=== PATIENT | male | born 1970 | race Caucasian/White ===

== ENCOUNTER → 2023-12-16 | Outpatient (CLI) | payer OTHER ==
--- NOTE | 2023-12-16 15:36 | PE ---
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 Images are reviewed on the computer in the coronal, axial, and sagittal planes. Reconstructed rotating images are created on independent workstation and reviewed on the computer. A non-contrast CT is performed in conjunction with the PET scan. Glucose level 205 mg/dL CT DLP: 515.94/212.67 mGycm, Automated exposure control for dose reduction was used. COMPARISON: CT None, PET/CT 10/06/2023, MRI: 08/26/2023 FINDINGS: Mediastinal SUV mean is 1.9. Hepatic parenchyma SUV mean is 2.5. SKULL BASE AND NECK: Decreased size of soft tissue mass within the bilateral nasopharynx and oropharynx. There is decrease d FDG activity with a maximum SUV of 4.2. Previously 13.3. Decreased size of bilateral retropharyngeal cervical lymph nodes. Example included a right level 2 lymph node which demonstrate a maximum SUV of 2.4, previously 7.5 an d a left level 2/3 lymph node with a maximum SUV of 2.7, previously 7.5. These are difficult to measu re due to lack of intravenous contrast. Appeared to measure less than 1 cm short axis. CHEST, MEDIASTINUM, AND HILAR REGION: No suspicious radiotracer activity. ABDOMEN AND PELVIS: No suspicious radiotracer activity. MUSCULOSKELETAL STRUCTURES: Sclerotic 1.6 cm lesion within the left aspect of the T4 vertebral body demonstrates a maximum SUV of 2.3, previously 10.7. Previously seen focal radiotracer activity within the region of the left scapula and left femoral sha ft are no longer visualized. OTHER CT: Anterior right chest wall Mediport catheter with distal tip terminating at the superior cav oatrial junction. Mild bilateral gynecomastia. Mild enlarged heart. Small coronary artery calcificati ons. Small hiatal hernia. Prostate calcifications. Mild mucosal thickening in the inferior left maxil la sinus. IMPRESSION: Positive response to therapy with decreased size and FDG activity below background within bilateral n asopharyngeal and oropharyngeal mass related to patient's known malignancy. Decreased size and FDG ac tivity below background within bilateral retropharyngeal and cervical lymph nodes. Decreased FDG acti vity below background within left L4 osseous metastasis with no definitive visualized FDG activity wi thin previously seen midshaft left femur lesion. [facility], , 12/16/2023 3:34 PM
== END | disposition home or self-care (01) ==
LOC: RADPETMAIN 10:48
PROVIDERS: ATTEND Internal Medicine
CPT/HCPCS: 78815

== ENCOUNTER 2024-01-15 14:41 | Emergency (ER) | payer BC, OTHER ==
--- NOTE | 2024-01-15 14:50 | ED ---
Wound/Laceration HPI - General Chief Complaint: Wound/Laceration Stated Complaint: thumb lac Time Seen by Provider: 01/15/24 14:50 Source: patient, RN notes reviewed Mode of arrival: ambulatory Limitations: no limitations - History of Present Illness Initial Comments: 53-year-old male presents emergency department chief complaint of a left thumb laceration that occurred approximately an hour before arrival. States that he was in his garage butchering a deer when he accidentally cut his thumb with a knife. He is unaware when his last tetanus vaccination was. Denies loss of range of motion of the thumb. Denies paresthesias. Denies blood thinner use. No other acute complaints at this time. - Related Data Allergies Allergy/AdvReac Type Severity Reaction Status Date / Time iodine Allergy Anaphylaxis Verified 01/15/24 14:43 Penicillins Allergy Anaphylaxis Verified 01/15/24 14:43 Review of Systems ROS Statement: Those systems with pertinent positive or pertinent negative responses have been documented in the HPI. ROS Other: All systems not noted in ROS Statement are negative. Past Medical History Past Medical History: Cancer, Diabetes Mellitus, Sleep Apnea/CPAP/BIPAP Additional Past Medical History / Comment(s): IBS History of Any Multi-Drug Resistant Organisms: None Reported Past Surgical History: Orthopedic Surgery Additional Past Surgical History / Comment(s): left shoudler, left, elbow, bilteral knees Past Psychological History: No Psychological Hx Reported Smoking Status: Former smoker Past Alcohol Use History: None Reported Past Drug Use History: None Reported General Exam Limitations: no limitations General appearance: alert, in no apparent distress Eye exam: Present: normal appearance, PERRL, EOMI. Absent: scleral icterus, conjunctival injection, periorbital swelling ENT exam: Present: normal exam, mucous membranes moist Neck exam: Present: normal inspection. Absent: tenderness, meningismus, lymphadenopathy Respiratory exam: Present: normal lung sounds bilaterally. Absent: respiratory distress, wheezes, rales, rhonchi, stridor Cardiovascular Exam: Present: regular rate, normal rhythm, normal heart sounds. Absent: systolic murmur, diastolic murmur, rubs, gallop, clicks GI/Abdominal exam: Present: soft, normal bowel sounds. Absent: distended, tenderness, guarding, rebound, rigid Left Hand Wrist exam: Present: full ROM, tenderness (DIP), laceration (DIP of thumb 4 cm laceration, active bleeding, full ROM). Absent: swelling, erythema Neuro motor exam: Present: wrist extension intact, thumb opposition intact, thumb IP flexion intact, thumb adduction intact Vascular: Present: normal capillary refill, radial pulse (2+). Absent: vascular compromise Skin exam: Present: warm, dry, intact, normal color. Absent: rash Course Vital Signs 01/15/24 01/15/24 14:44 16:14 Temperature 98.8 F 98.6 F Pulse Rate 97 89 Respiratory 16 18 Rate Blood Pressure 139/92 131/90 O2 Sat by Pulse 98 98 Oximetry Procedures - Laceration Laceration #1 Consent Obtained: verbal consent Indication: laceration Site: hand Size (cm): 4 Description: linear Depth: simple, single layer Anesthetic Used: lidocaine 1% Anesthesia Technique: nerve block Pre-repair: wound explored, irrigated extensively Type of Sutures: nylon Size of Sutures: 4-0 Number of Sutures: 4 Technique: simple, interrupted Patient Tolerated Procedure: well, no complications Medical Decision Making - Medical Decision Making Was pt. sent in by a medical professional or institution (Dr. PA, SET DECORATOR, urgent care, hospital, or skilled nursing...) When possible be specific @ -No Did you speak to anyone other than the patient for history (EMS, parent, family, police, friend...)? What history was obtained from this source @ -No Did you review nursing and triage notes (agree or disagree)? Why? @ -I reviewed and agree with nursing and triage notes Were old charts reviewed (outside hosp., previous admission, EMS record, old EKG, old radiological studies, urgent care reports/EKG's, skilled nursing records)? Report findings @ -No old charts were reviewed Differential Diagnosis (chest pain, altered mental status, abdominal pain women, abdominal pain men, vaginal bleeding, weakness, fever, dyspnea, syncope, headache, dizziness, GI bleed, back pain, seizure, CVA, palpatations, mental health, musculoskeletal)? @ -Laceration, skin avulsion EKG interpreted by me (3pts min.). @ -None X-rays interpreted by me (1pt min.). @ -None done CT interpreted by me (1pt min.). @ -None done U/S interpreted by me (1pt. min.). @ -None done What testing was considered but not performed or refused? (CT, X-rays, U/S, labs)? Why? @ -None What meds were considered but not given or refused? Why? @ -None Did you discuss the management of the patient with other professionals (professionals i.e. , PA, SET DECORATOR, lab, RT, psych nurse, social worker delinquency prevention, news operations manager, teacher, neighborhood conservation officer, director case)? Give summary @ -No Was smoking cessation discussed for >3mins.? @ -No Was critical care preformed (if so, how long)? @ -No Were there social determinants of health that impacted care today? How? (Homelessness, low income, unemployed, alcoholism, drug addiction, transportation, low edu. Level, literacy, decrease access to med. care, fpc, rehab)? @ -No Was there de-escalation of care discussed even if they declined (Discuss DNR or withdrawal of care, Hospice)? DNR status @ -No What co-morbidities impacted this encounter? (DM, HTN, Smoking, COPD, CAD, Cancer, CVA, ARF, Chemo, Hep., AIDS, mental health diagnosis, sleep apnea, morbid obesity)? @ -None Was patient admitted / discharged? Hospital course, mention meds given and route, prescriptions, significant lab abnormalities, going to OR and other pertinent info. @ -Discharged. 53-year-old male with a laceration to his left thumb. On examination patient had full range of motion left thumb and is neurovascularly intact. Pulses strong 2+. Patient noted to have a roughly 4 cm laceration over the distal interphalangeal joint of the left thumb. Patient is provided with tetanus vaccination. Digital block was placed to the left thumb and 4 simple interrupted sutures were placed with 4-0 nylon. Additionally, area was thoroughly cleansed with sterile water. Recommend the patient report back to the emergency department or to his primary care provider in 7 to 10 days for suture removal. Discussed with Dr. Overton Undiagnosed new problem with uncertain prognosis? @ -No Drug Therapy requiring intensive monitoring for toxicity (Heparin, Nitro, Insulin, Cardizem)? @ -No Were any procedures done? @ -Wound irrigation, suture repair Diagnosis/symptom? @ -laceration Acute, or Chronic, or Acute on Chronic? @ -Acute Uncomplicated (without systemic symptoms) or Complicated (systemic symptoms)? @ -uncomplicated Side effects of treatment? @ -No Exacerbation, Progression, or Severe Exacerbation? @ -No Poses a threat to life or bodily function? How? (Chest pain, [place], [place], pneumonia, PE, COPD, DKA, ARF, appy, cholecystitis, CVA, Diverticulitis, Homicidal, Suicidal, threat to staff... and all critical care pts) @ -No Disposition Clinical Impression: Laceration Disposition: HOME SELF-CARE Condition: Good Instructions (If sedation given, give patient instructions): Care For Your Stitches (ED) Additional Instructions: Please return to the Emergency Department if symptoms worsen or any other concerns. Return to the emergency department or report your primary care provider in 7 to 10 days for suture removal. Continue to keep area clean and dry. Is patient prescribed a controlled substance at d/c from ED?: No Referrals: Giuseppe Davidson MD [Primary Care Provider] - 1-2 days Time of Disposition: 16:05
[2024-01-15] MEDS: DIPH,PERTUS(ACELL)TETVAC-LF 0.5 ML VIAL IM ONE (15:26)
[2024-01-15] MEDS: LIDOCAINE 1% INJ 10MG/ML (20 ML MDV) SQ ONE (15:28)
[2024-01-15 16:15] VITALS: BP 131/90; PULSE 89; RESP 18; TEMP 98.6
== END 2024-01-15 16:15 | disposition home or self-care (01) ==
LOC: EC 14:41
CPT/HCPCS: 12002; 90471; 90715; 99282

== ENCOUNTER → 2024-06-08 | Outpatient (CLI) | payer OTHER ==
--- NOTE | 2024-06-08 14:20 | PE ---
EXAMINATION TYPE: PET CT fusion skull to thigh DATE OF EXAM: 06/08/2024 COMPARISON: Prior PET/CT December 16, 2023 and older outside study HISTORY: Nasopharyngeal cancer TECHNIQUE: Following the intravenous administration of 13.08 mCi of F-18 FDG, whole body images are performed from the skull base to the midthigh. Images are reviewed on the computer in the coronal, a xial, and sagittal planes. Reconstructed rotating images are created on independent workstation and reviewed on the computer. A localization and attenuation correction CT is performed in conjunction with the PET scan. Dedicated PET/CT of the head and neck is performed. Blood glucose level equals 120 . SCAN: Subsequent Scan FINDINGS: HEAD AND NECK: No suspicious increase hypermetabolic uptake in the bilateral nasopharynx and orophar ynx. No suspicious hypermetabolic uptake in the bilateral neck region on current study. No new areas of abnormal hypermetabolic uptake seen. CHEST, MEDIASTINUM, AND HILAR REGION: No areas of abnormal hypermetabolic uptake ABDOMEN AND PELVIS: No areas of abnormal hypermetabolic uptake. OSSEOUS STRUCTURES: No areas of abnormal hypermetabolic uptake. Stable subtle sclerotic focus left T4 level without abnormal hypermetabolic uptake. OTHER CT: Right-sided Mediport catheter is redemonstrated. Small bilateral masses redemonstrated. Sli ghtly enlarged prostate consistent with BPH is redemonstrated. Bilateral pars defect L5 level without spondylolisthesis again seen. IMPRESSION: No areas of new or residual abnormal hypermetabolic uptake to suggest active malignancy. [facility], , 06/08/2024 2:17 PM
== END | disposition home or self-care (01) ==
LOC: RADPETMAIN 12:02
PROVIDERS: ATTEND Internal Medicine
DX: C11.8 Malignant neoplasm of overlapping sites of nasopharynx (principal)
CPT/HCPCS: 78815; A9552

== ENCOUNTER 2024-10-23 12:06 | Day surgery (SDC) | payer OTHER ==
[2024-10-23 12:36] VITALS: TEMP 97.9
[2024-10-23] MEDS: IV FLUID CONTINUATION 1,000 ML IV ONE (12:43)
[2024-10-23] MEDS: LACTATED RINGERS 1,000 ML BAG IV STA (12:43)
[2024-10-23 13:13] LABS: Glucose,Whole Blood 108 mg/dL (70-110)
[2024-10-23] MEDS: BUPIVACAINE (PF) 0.25% 30 ML VIAL SQ ONE (14:09)
[2024-10-23 14:32] VITALS: RESP 16
--- NOTE | 2024-10-23 14:40 | P.OP ---
Date of Procedure: 10/23/24 Preoperative Diagnosis: History of pharyngeal cancer Postoperative Diagnosis: History of pharyngeal cancer Procedure(s) Performed: Mediport removal Anesthesia: MAC Surgeon: Ariana Natarajan Pathology: none sent Condition: stable Disposition: same day Indications for Procedure: 54-year-old male has completed therapy for pharyngeal cancer. After discussion with his oncologist he is opted for removal of his Mediport. Risk, benefits and alternatives were provided to the patient. All questions answered prior to attending the operating suite. Operative Findings: Port and catheter removed in entirety Description of Procedure: Patient was brought to the operating suite and placed in supine position on the operating table. He was prepped and draped in regular sterile fashion. Local anesthetic was administered and incision was made over previous incision site. Dissection was carried towards the Mediport and catheter site. The capsule was incised and the port was freed from surrounding tissue and completely removed from the pocket. A [id number] 3-0 Vicryl suture was placed around the catheter insertion site and tied down as the catheter was removed. Hemostasis was noted to be maintained. The wound was then closed in layers with 3-0 Vicryl and 4-0 Vicryl subcuticular suture. Sterile dressing was applied. The patient was awakened in the operating suite and taken to postanesthesia care in stable condition.
[2024-10-23 14:51] VITALS: BP 121/89; PULSE 72
== END 2024-10-23 14:51 | disposition home or self-care (01) ==
LOC: OR 12:06
PROVIDERS: ATTEND Surgery
DX: Z45.2 Encounter for adjustment and management of vascular access device (principal); Z85.819 Personal history of malignant neoplasm of unspecified site of lip, oral cavity, and pharynx
CPT/HCPCS: 36590; J0665